=== PATIENT | female | born 2000 | race Caucasian/White ===

== ENCOUNTER 2023-09-22 22:14 | Inpatient (IN) | payer BC, MEDICAID, OTHER, SELFPAY ==
[2023-09-22 22:29] VITALS: BMI 32.9
[2023-09-22] MEDS ORDERED: hydrALAZINE 20 MG/ML VIAL SLOW IVP PRN (23:01)
[2023-09-22] MEDS ORDERED: Lidocaine 1% (PF) 30 ML VIAL SC PRN (23:01)
[2023-09-22] MEDS ORDERED: Promethazine HCl 25 MG/ML VIAL IM PRN (23:01)
[2023-09-23 01:04] LABS: Hematocrit 34.5 % (34.9-44.5); Hemoglobin 12.7 g/dL (12.0-15.5); Mean Corpuscular HGB CONC 36.8 g/dL (32.0-36.0); Mean Corpuscular Hemoglobin 34.9 pg (27.0-33.0); Mean Corpuscular Volume 94.8 fL (81.6-98.3); Platelet Count 202 10x3/uL (150-450); RBC Distribution Width 12.6 % (11.5-14.5); Red Blood Cell (RBC) Count 3.64 10x6/uL (3.90-5.03); White Blood Cell (WBC) Count 9.9 10x3/uL (3.5-10.5)
[2023-09-23] MEDS: Morphine 4 MG/ML VIAL SLOW IVP SCH (01:10)
[2023-09-23] MEDS: Prenatal Vitamin 1 TAB PO SCH (01:11)
[2023-09-23] MEDS: Sertraline 100 MG TAB PO SCH ×2 (01:11→07:13)
[2023-09-23 01:42] LABS: Syphilis Antibody Nonreactive (Nonreactive); Syphilis Antibody Index 0.03 S/CO (<1.00 Non-Reactive)
[2023-09-23 01:42] LABS: HBsAg Index 0.17 S/CO (0-0.99); Hep B Surf Ag - L&D Non-Reactive S/CO (NonReactive)
[2023-09-23] MEDS ORDERED: Misoprostol 200 MCG TAB PR PRN (04:34)
[2023-09-23] MEDS ORDERED: Tranexamic Acid 1,000 MG/10 ML VIAL IVP PRN (04:34)
[2023-09-23] MEDS ORDERED: Oxytocin 30 units/NS 500 ML 500 ML IV SCH ×2 (04:45)
[2023-09-23] MEDS: Morphine 4 MG/ML VIAL SLOW IVP PRN (05:07)
[2023-09-23] MEDS: Misoprostol 100 MCG TAB VAG SCH (05:09)
[2023-09-23] MEDS: Lactated Ringer's 1,000 ML IV SCH (07:11)
[2023-09-23] MEDS ORDERED: Prenatal Vitamin 1 TAB PO SCH ×2 (09:00→21:00)
[2023-09-23] MEDS ORDERED: Sertraline 100 MG TAB PO SCH (09:00)
[2023-09-23] MEDS: fentaNYL 50 mcg/mL 1 mL Vial SLOW IVP SCH (09:09)
[2023-09-23] MEDS ORDERED: Ondansetron PF 4 MG/2 ML Vial IVP PRN ×2 (12:48→23:19)
[2023-09-23] MEDS ORDERED: ePHEDrine Sulfate 50 MG/10 ML VIAL SLOW IVP PRN (12:48)
[2023-09-23] MEDS ORDERED: Moisturizing Cream (Eucerin) 113 GM JAR TOP PRN (12:48)
[2023-09-23] MEDS ORDERED: Naloxone HCl 0.4 mg/ml Vial IVP PRN ×2 (12:48)
[2023-09-23] MEDS ORDERED: Lactated Ringer's 500 ML IV PRN (12:48)
[2023-09-23] MEDS ORDERED: diphenhydrAMINE 50 MG/ML VIAL IVP PRN (12:48)
[2023-09-23] MEDS ORDERED: Communication Order-Pharmacy FS SCH (13:00)
[2023-09-23] MEDS ORDERED: fentaNYL 2 mcg/Ropivacaine 0.2% Epidural 100 ML CADD EPIDURAL SCH (13:00)
[2023-09-23] MEDS: fentaNYL/Ropivacaine Epidural 100 ML ONE (13:09)
[2023-09-23] MEDS: Calcium Carbonate 500 MG ChewTAB PO PRN (17:50)
[2023-09-23] MEDS: Famotidine 20 MG TAB PO PRN (19:31)
[2023-09-23] MEDS: Ondansetron PF 4 MG/2 ML Vial IVP PRN (20:15)
[2023-09-23] MEDS: Oxytocin 30 units/NS 500 ML 500 ML IV SCH (21:15)
[2023-09-23] MEDS: Acetaminophen 325 MG TAB PO PRN (22:00)
[2023-09-23] MEDS: Methylergonovine 0.2 MG/ML VIAL IM PRN (22:05)
[2023-09-23] MEDS: Carboprost 250 MCG/ML AMP IM PRN (23:12)
[2023-09-23] MEDS ORDERED: Benzocaine-Menthol 82.5 ML CAN TOP PRN (23:19)
[2023-09-23] MEDS ORDERED: diphenhydrAMINE 25 MG CAP PO PRN (23:19)
[2023-09-23] MEDS ORDERED: Promethazine HCl 25 MG/ML VIAL IM PRN (23:19)
[2023-09-23] MEDS ORDERED: hydrALAZINE 20 MG/ML VIAL SLOW IVP PRN (23:19)
[2023-09-23] MEDS ORDERED: Lanolin Ointment 7 GM TUBE TOP PRN (23:19)
[2023-09-23] MEDS ORDERED: Milk Of Magnesia 30 ML UDCUP PO PRN (23:19)
[2023-09-23] MEDS ORDERED: Bisacodyl 10 MG SUPP PR PRN (23:19)
[2023-09-23] MEDS: Promethazine HCl 25 MG/ML VIAL IM PRN (23:32)
[2023-09-23] MEDS: Ibuprofen 800 MG TAB PO SCH (23:54)
[2023-09-23] MEDS: HYDROcodone/Acetaminophen 5/325 mg Tablet PO PRN (23:54)
[2023-09-24] MEDS: Diphenoxylate HCl/Atropine Tablet PO PRN (00:42)
[2023-09-24] MEDS: Ferrous Sulfate 325 MG TAB PO SCH (07:08)
[2023-09-24] MEDS: Prenatal Vitamin 1 TAB PO SCH (08:54)
[2023-09-24] MEDS: Docusate 100 MG CAP PO SCH (08:54)
[2023-09-24] MEDS: Boostrix 0.5 ML (Tdap) VIAL (>/=7 yrs of age) IM ONE (19:27)
[2023-09-25 08:04] VITALS: BP 105/70; TEMP 98.4
== END 2023-09-25 15:15 | disposition home or self-care (01) | DRG 807 ==
LOC: CSHLD/OP 22:14 → CSHLD 09-23 00:51 → CSHPP 09-24 01:00
PROVIDERS: ADMIT Family Medicine; ATTEND Family Medicine
PROC: 10E0XZZ Delivery of Products of Conception, External Approach (ICD-10-PCS; principal; 2023-09-23)
PROC: 0KQM0ZZ Repair Perineum Muscle, Open Approach (ICD-10-PCS; 2023-09-23)
DX: O41.03X0 Oligohydramnios, third trimester, not applicable or unspecified (principal); Z37.0 Single live birth; Z3A.38 38 weeks gestation of pregnancy; O70.1 Second degree perineal laceration during delivery
CPT/HCPCS: 36415; 85027; 86780; 86850; 86900; 86901; 87340; J2210; J2270; J2405; J2550; J2590; J3010; J3490; J7120